=== PATIENT | female | born 2005 | race Caucasian/White ===

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

== ENCOUNTER → 2024-03-15 | Outpatient (REF) | payer OTHER | LOC: M PLALAB 10:06 | PROVIDERS: ATTEND Specialist | DX: N92.6 Irregular menstruation, unspecified (principal) ==